=== PATIENT | male | born 1985 | race Caucasian/White ===

== ENCOUNTER 2022-02-13 00:44 | Emergency (ER) | payer OTHER ==
[2022-02-13 00:49] VITALS: BMI 29.0
[2022-02-13 00:53] VITALS: BP 132/92; PULSE 86; TEMP 98.4
== END 2022-02-13 01:09 | disposition home or self-care (01) ==
LOC: FER 00:44
DX: S80.869A Insect bite (nonvenomous), unspecified lower leg, initial encounter (principal); W57.XXXA Bitten or stung by nonvenomous insect and other nonvenomous arthropods, initial encounter; Y92.9 Unspecified place or not applicable
CPT/HCPCS: 99283-25